=== PATIENT | female | born 1940 | race Caucasian/White ===

== ENCOUNTER → 2016-11-22 | Outpatient (CLI) | payer OTHER | LOC: RAD 01:09 | DX: Z12.31 Encounter for screening mammogram for malignant neoplasm of breast (principal) ==

== ENCOUNTER → 2017-04-18 | Outpatient (CLI) | payer OTHER ==
[~2017-04-18] VITALS: Ht 152.4 cm; Wt 77.1 kg
[~2017-04-18] MED LIST: BREO ELLIPTA 11 EACH IH; CALCIUM 600 +1 EAC1 PO; COZAAR 50 MG TA50 M2 PO; FISH OIL 1,2001 EAC4 PO; HEALTHY EYES C1 EACH PO; MULTIVITAMINS1 EAC7 PO; OMEPRAZOLE40 MG PO; PRAVASTATIN SOD40 MG PO; VITAMIN D31000 UNI2 PO
--- NOTE | ~2017-04-18 | P ---
[facility] [place] [address] PROCEDURE REPORT Name: ALINELO SONIA [facility] [id number] Admission: 04/18/17 Attend Phys: David Swan MD Discharge: Date of : 40 Report #: [id number] THIS REPORT FOR: //name// CC: David Giron BRIEF HISTORY: The patient is a 76-year-old woman who underwent upper endoscopy a year ago, was found to have submucosal lesion in the antrum ____ incisura. Biopsies were nondiagnostic. She presents today for followup endoscopy and surveillance of the submucosal nodule. PREOPERATIVE DIAGNOSIS: Antral nodule. POSTOPERATIVE DIAGNOSES: 1. A 4-5 mm polyp, antrum and stomach. 2. Small hiatus hernia. 3. No endoscopic evidence of submucosal lesion of stomach today. MEDICATIONS: Deep sedation with propofol per anesthesia. SPECIMEN: Biopsy from polyp antrum. ESTIMATED BLOOD LOSS: 3 mL. PROCEDURE: EGD with biopsy. FINDINGS: Prior to propofol sedation, procedure of upper endoscopy was reviewed with the patient as well as potential risks, benefits, and complications. She indicates she understands and desires to proceed. DESCRIPTION OF PROCEDURE: With the patient in left lateral decubitus position, the [employer] video endoscope was inserted in the cervical esophagus under direct vision without difficulty. Examination of this organ to its entire length revealed normal esophageal mucosa down the squamocolumnar junction. The squamocolumnar junction was inspected and noted to be unremarkable. No ulcers or erosions were seen. There was no evidence of Ac esophagus. The hernia was no more than about 2 cm in length. Scope was advanced in the stomach, which was examined on end view as well as retroflexed views. Examination of mucosa revealed to be intact, within normal limits. Upon examination of the stomach, I did not see any submucosal lesions. Interestingly, along the incisura and the antrum of the stomach, a 4-5 mm sessile polyp was seen and removed by biopsy. This is the proximal location of previous submucosal lesion, but no bulges or submucosal lesions were seen today even when fully insufflating the stomach with air. On multiple views, we did not see any submucosal lesion today. Upon retroflexion, the proximal stomach, hiatus hernia was seen, no other abnormalities were identified. The pylorus, duodenal bulb, and postoperative [address] [address] PROCEDURE REPORT Name: MIRELESLO Room #: REG CL Elizabeth#: [id number] Admission: 04/18/17 Attend Phys: David Swan MD Discharge: Date of : 40 Report #: [id number] sweep were inspected and noted to be unremarkable. At that point, the scope was slowly withdrawn and careful circumferential views confirmed the above findings. The patient tolerated the procedure well. CONDITION OF THE PATIENT UPON DISCHARGE: Following procedure, the patient drowsy and arousable. She will be discharged to home when fully ambulatory. INSTRUCTIONS TO THE PATIENT AND FAMILY AT THE TIME OF DISCHARGE: The patient with history of a submucosal antral nodule. The nodule was not seen today. Interestingly, she did have a small polyp in the region thought to represent the previous area of the location of the submucosal nodule. No nodules or mass lesions were seen today. We will follow up on the path. At this point, I do not see the need for any further surveillance endoscopy. The patient also complains of cough. She does have a small hiatus hernia. I do not see evidence of esophagitis. We will have her increase her omeprazole to 40 mg twice daily for at least 3 months on a trial basis. She will return to care of Dr. Magdiel Guillory, return to see me as needed. If she continues to have problems with cough, she may return to see us in followup in the office. <ELECTRONICALLY SIGNED> By: David Swan MD 04/19/17 [id number] David Swan MD /nt
--- NOTE | ~2017-04-18 | S ---
[facility] [address] [place] [address] SURGICAL PATH RPT PROCEDURE Name: LO MIRELES Room #: REG GILMA Kemp.#: [id number] Admission: 04/18/17 Date of : 40 Discharge: Report #: [id number] Path Case #: [id number] PATHOLOGY REPORT DRAFT COLLECTION DATE: 04/18/2017 RECEIVED DATE: 04/19/2017 SPECIMEN(S) RECEIVED: Nikita polyp
== END | disposition home or self-care (01) ==
LOC: GI 08:02
DX: K31.7 Polyp of stomach and duodenum (principal); K44.9 Diaphragmatic hernia without obstruction or gangrene; K21.9 Gastro-esophageal reflux disease without esophagitis; I10 Essential (primary) hypertension; J45.909 Unspecified asthma, uncomplicated; E78.00 Pure hypercholesterolemia, unspecified; Z85.3 Personal history of malignant neoplasm of breast; Z90.49 Acquired absence of other specified parts of digestive tract; Z79.899 Other long term (current) drug therapy; Z98.890 Other specified postprocedural states
CPT/HCPCS: 62110

== ENCOUNTER → 2017-11-29 | Outpatient (CLI) | payer OTHER | LOC: RAD 11-25 01:07 | DX: Z12.31 Encounter for screening mammogram for malignant neoplasm of breast (principal) ==

== ENCOUNTER → 2018-12-01 | Outpatient (CLI) | payer OTHER | LOC: RAD 01:49 | DX: Z12.31 Encounter for screening mammogram for malignant neoplasm of breast (principal) ==

== ENCOUNTER → 2019-09-24 | Outpatient (CLI) | payer OTHER | LOC: RAD 08:05 | DX: R91.8 Other nonspecific abnormal finding of lung field (principal); M41.84 Other forms of scoliosis, thoracic region; M47.814 Spondylosis without myelopathy or radiculopathy, thoracic region; I51.7 Cardiomegaly ==

== ENCOUNTER → 2019-10-02 | Outpatient (CLI) | payer OTHER | LOC: CAT 10:10 | DX: J98.4 Other disorders of lung (principal); J45.40 Moderate persistent asthma, uncomplicated; I25.10 Atherosclerotic heart disease of native coronary artery without angina pectoris; K76.89 Other specified diseases of liver; N64.89 Other specified disorders of breast; Z90.49 Acquired absence of other specified parts of digestive tract ==

== ENCOUNTER → 2020-01-06 | Outpatient (CLI) | payer OTHER | LOC: RAD 09:21 | DX: Z12.31 Encounter for screening mammogram for malignant neoplasm of breast (principal) ==

== ENCOUNTER → 2020-04-06 | Outpatient (CLI) | payer OTHER | LOC: CAT 07:46 | PROVIDERS: ATTEND Internal Medicine | DX: R91.8 Other nonspecific abnormal finding of lung field (principal); R92.1 Mammographic calcification found on diagnostic imaging of breast; K76.89 Other specified diseases of liver ==

== ENCOUNTER → 2021-01-06 | Outpatient (CLI) | payer OTHER | LOC: BC 09:19 → RAD 09:57 | PROVIDERS: ATTEND Obstetrics & Gynecology | DX: Z12.31 Encounter for screening mammogram for malignant neoplasm of breast (principal) ==

== ENCOUNTER → 2021-01-10 | Outpatient (CLI) | payer OTHER | LOC: ULTRA 13:36 | PROVIDERS: ATTEND Obstetrics & Gynecology | DX: N60.02 Solitary cyst of left breast (principal); N63.42 Unspecified lump in left breast, subareolar; N63.20 Unspecified lump in the left breast, unspecified quadrant ==

== ENCOUNTER → 2021-04-04 | Outpatient (CLI) | payer OTHER | LOC: CAT 07:47 | PROVIDERS: ATTEND Internal Medicine | DX: R91.8 Other nonspecific abnormal finding of lung field (principal) ==